=== PATIENT | female | born 1945 | race Caucasian/White ===

== ENCOUNTER 2016-11-15 14:46 | Inpatient (IN) | payer MEDICARE ==
[2017-01-18] MEDS ORDERED: TRAMADOL HCL 50 MG TABLET PO ONE (05:30)
[2017-01-18] MEDS ORDERED: OXYCODONE HCL 10 MG TAB.SR PO ONE ×2 (05:30→06:46)
[2017-01-18] MEDS ORDERED: GABAPENTIN 600 MG TABLET PO ONE (05:30)
[2017-01-18] MEDS ORDERED: FAMOTIDINE 20 MG TABLET PO ONE (05:30)
[2017-01-18] MEDS ORDERED: CELECOXIB 200 MG CAPSULE PO ONE (05:30)
[2017-01-18] MEDS ORDERED: ONDANSETRON 4 MG/2ML 2 ML VIAL IV ONE (05:30)
[2017-01-18] MEDS ORDERED: CLONIDINE HCL 0.1 MG/24 HR (7 DAY PATCH) TD SCH (05:30)
[2017-01-18] MEDS ORDERED: IV START KIT ONE ×2 (05:43→18:08)
[2017-01-18] MEDS ORDERED: LACTATED RINGERS 1,000 ML ONE (05:43)
[2017-01-18] MEDS ORDERED: BUPIVACAINE 0.75% SPINAL AMPUL 2 ML ONE (06:24)
[2017-01-18] MEDS ORDERED: ROPIVACAINE 0.5% 30 ML VIAL ONE (06:24)
[2017-01-18] MEDS ORDERED: SPINAL PROCEDURAL TRAY 1 EACH ONE (06:24)
[2017-01-18] MEDS ORDERED: NERVE BLOCK PROCEDURAL TRAY 1 EACH ONE (06:25)
[2017-01-18] MEDS ORDERED: MIDAZOLAM HCL 5 MG/5 ML VIAL ONE (06:26)
[2017-01-18] MEDS ORDERED: FENTANYL 100 MCG/2 ML VIAL ONE (06:26)
[2017-01-18] MEDS ORDERED: ROPIVACAINE 0.2% 20 ML VIAL ONE (06:42)
[2017-01-18] MEDS ORDERED: TRAMADOL HCL 50 MG TABLET ONE (06:46)
[2017-01-18] MEDS ORDERED: FAMOTIDINE 20 MG TABLET ONE (06:47)
[2017-01-18] MEDS ORDERED: CLONIDINE HCL 0.1 MG/24 HR (7 DAY PATCH) TD ONE (06:47)
[2017-01-18] MEDS ORDERED: GABAPENTIN 600 MG TABLET ONE (06:47)
[2017-01-18] MEDS ORDERED: ONDANSETRON 4 MG/2ML 2 ML VIAL ONE (06:47)
[2017-01-18] MEDS ORDERED: CELECOXIB 200 MG CAPSULE ONE (06:47)
[2017-01-18] MEDS ORDERED: CEFAZOLIN SODIUM 2 GRAM PREMIX 100 ML IV ONE (07:07)
[2017-01-18] MEDS ORDERED: BUPIVACAINE 0.25% (MDV) 24 ML, MORPHINE SULFATE 8 MG, EPINEPHRINE 0.3 MG in SODIUM CHLO... IF PRN (07:10)
[2017-01-18] MEDS ORDERED: POLYMYXIN B SULFATE 500,000 UNITS, BACITRACIN 25,000 UNITS in SODIUM CHLORIDE 3 L IRRIG... IR PRN (07:10)
[2017-01-18] MEDS ORDERED: TRANEXAMIC ACID 1,000 MG in SODIUM CHLORIDE 0.9% 100 ML IV PRN (07:10)
[2017-01-18] MEDS ORDERED: BUPIVACAINE 0.25% (MDV) 20 ML in SODIUM CHLORIDE 0.9% FLUSH 20 ML IF PRN (07:10)
[2017-01-18] MEDS ORDERED: PROPOFOL 40 ML IV ONE (08:07)
[2017-01-18] MEDS ORDERED: EPHEDRINE SULFATE UD SYR 25 MG 25 MG/5 ML SYRINGE IV ONE ×2 (08:07→09:26)
[2017-01-18] MEDS ORDERED: NALOXONE HCL 0.4 MG/ML VIAL IV PRN (08:44)
[2017-01-18] MEDS ORDERED: ATROPINE SULFATE 0.4 MG/1 ML VIAL IV PRN (08:44)
[2017-01-18] MEDS ORDERED: ON-Q PUMP/ROPIVACAINE 0.2% 450 ML in PREMIX BAG 1 EACH NB PRN (08:44)
[2017-01-18] MEDS ORDERED: FENTANYL 100 MCG/2 ML VIAL IV PRN (08:44)
[2017-01-18] MEDS ORDERED: LACTATED RINGERS 1,000 ML IV SCH (08:45)
--- NOTE | 2017-01-18 09:32 | HP ---
DATE OF CLINIC: 01/12/2017 YAJAIRA ERNST : 1945 PLANNED PROCEDURE: Right Knee Removal of Femoral Brayden and Nail and Total Knee Arthroplasty DATE OF PROCEDURE: January 18, 2017 SURGEON: Johnny Lackey M.D. PCP: Dr. Carlos Caldwell HISTORY OF PRESENT ILLNESS Yajaira Ernst is a 71 year old female. * Medication list reviewed with patient allergy list reviewed with patient. 71-year-old female well-known to me for degenerative disease of her right knee. She has most recently gone through a visco supplementation trial with Félix, finishing in January, but unfortunately did not result in much improvement. She struggles with global pain more medial than lateral, non-mechanical. She does have night pain and significant startup symptoms. Pain is non-radicular, no hip pain. She does have a history of a prior lumbar fusion. In addition, she also has rheumatoid arthritis being managed by Dr. Jayla Wood. She is on Remicade and Methotrexate. She is currently on a short course of oral Prednisone as well for a "flare". She has had a prior femoral fracture treated by Dr. Mcmanus in 2010 with a retrograde nail. She is interested in discussion of definitive treatment with respect to the knee. After discussion and review of treatment options, both operative and non-operative, she has elected to proceed with surgical intervention and presents today preoperatively. She has had no recent illnesses. CURRENT MEDICATION * Adult Aspirin EC Low Strength 81 MG Tablet Delayed Release 1 once a day 0 days, 0 refills * AmLODIPine Besylate 5 MG Tablet 1 once a day 0 days, 0 refills * Calcium + D3 600-200 MG-UNIT Tablet 1 once a day 0 days, 0 refills * Flonase Allergy Relief 50 MCG/ACT Suspension as directed 0 days, 0 refills * Folic Acid 1 MG Tablet three times a day 0 days, 0 refills * HydroCHLOROthiazide 25 MG Tablet 1 once a day 0 days, 0 refills * Methotrexate 2.5 MG Tablet as directed 6 tabs a week, 0 days, 0 refills * Metoprolol Tartrate 25 MG Tablet 2 once a day half a tab 2x a day, 0 days, 0 refills * Multi Vitamin Daily Tablet 1 once a day 0 days, 0 refills * Logsden 3 1200 MG Capsule 1 once a day 0 days, 0 refills * Potassium Chloride ER 10 MEQ Capsule Extended Release 1 once a day 0 days, 0 refills * Remicade 100 MG Solution Reconstituted as directed 0 days, 0 refills * Tolterodine Tartrate 1MG Tablet as directed 2mg 2 times a day, 0 days, 0 refills * Vitamin D3 2000 UNIT Capsule 1 once a day 0 days, 0 refills PAST MEDICAL/SURGICAL HISTORY Reported: Medical: A previous fracture femur 2010, Hypertension, Vertigo, and Rheumatoid Arthritis since 1987. Surgical / Procedural: Prior surgery fracture femur 12/2010 and Back Surgery fusion 10/2012. SOCIAL HISTORY Behavioral: Caffeine use and non-smoker quit smoking stopped in 2009 after smoking 1 pack a day for 40 years. Smoking status: Former smoker. Alcohol: Alcohol use a social drinker. Work: Occupation Retired. ALLERGIES * EDTA Reaction: Skin Rashes/Hives * Hayfever * Neosporin Reaction: Skin Rashes/Hives No reaction to anesthetics. REVIEW OF SYSTEMS Systemic: No fever and no recent weight change. Head: No head symptoms. Cardiovascular: No cardiovascular symptoms. Pulmonary: No pulmonary symptoms. Gastrointestinal: No gastrointestinal symptoms. Psychological: No psychological symptoms. Skin: No skin lesions and no rash. PHYSICAL FINDINGS * Vitals taken 01/12/2017 01:42 pm BP-Sitting R 136/76 mmHg 100 - 120/56 - 80 BP Cuff Size Regular Pulse Rate-Sitting 60 bpm 50 - 100 Temp-Oral 96.6 F 96 - 101 Height 62 in 59 - 68 Weight 135 lbs 95 - 175 Body Mass Index 24.7 kg/m2 Body Surface Area 1.62 m2 Pain Level 8 Ears, Nose, Throat: * ENT: normal. Lungs: * Clear to auscultation. Cardiovascular: Heart Rate and Rhythm: * Normal. Abdomen: * Normal. Neurological: Motor: * Dominant Hand = Right Hand. Patient is a well-developed, well-nourished female in no acute distress, normal-appearing mood and affect. She has a stiff-legged, antalgic gait, worse at startup favoring the right. She stands well centered over her pelvis with no pelvic obliquity. Evaluation of the right knee shows a well-healed anteromedial curving incision. Skin integrity is well-preserved, no wounds, rashes or lesions. Mild swelling, no gross effusion. Motion is 0-115 degrees with discomfort on forced flexion. She is tender medially, fairly diffuse, NT laterally, mild pain on patellar compression. Ligamentous exam is intact for cruciates and collaterals. NT over the anteromedial proximal tibia. Calf is soft and NT. Distal light touch sensation and motor function are intact and symmetric. Pulses are palpable. Gentle rotation of the hip is non-irritable. TESTS * Test: TYPE AND SCREEN Report Date: 01/18/2017 BLOOD TYPE A Pos Normal AB SCREEN NEGATIVE Normal * Test: CBC WITH DIFF Report Date: 01/12/2017 WBC 9.2 10*3/mL BASOPHIL 0.5 % RBC 4.28 10*6/uL NEUTROPHILS 50.2 % MCH 32.2 pg High MCHC 33.1 g/dL RDW 14.2 % MCV 97.4 fL PLATELET COUNT 217 10*3/mL IMM NEUT % 0.2 % IMM NEUT # 0.0 10*3/mL MONOCYTES 14.8 % High EOSINOPHIL 3.5 % High HCT 41.7 % HGB 13.8 g/L LYMPHOCYTE 30.8 % ANC 4.6 10*3/mL * Test: COMPREHENSIVE METABOLIC PANEL Report Date: 01/12/2017 ALT/SGPT 24 U/L ALBUMIN 4.1 g/dL ALB/GLOB RATIO 1.1 BUN 19 mg/dL BUN/CREAT RATIO 27 High CALCIUM 9.7 mg/dL GLUCOSE 98 mg/dL CREATININE 0.7 mg/dL SODIUM 137 meq/L POTASSIUM 3.8 meq/L CHLORIDE 99 meq/L CARBON DIOXIDE 30 meq/L ANION GAP 12 meq/L TOT PROTEIN 7.7 g/dL GLOBULIN 3.6 g/dL High BILI,TOTAL 0.4 mg/dL AST/SGOT 31 U/L ALK PHOSPHATASE 62 U/L GFR 82 High * Test: CULTURE, MRSA Report Date: 01/14/2017 CULTURE, MRSA See Report * Test: CULTURE, URINE Report Date: 01/13/2017 CULTURE, URINE See Report * Test: PARTIAL THROMBOPLASTIN TIME Report Date: 01/12/2017 APTT 22.7 s Low * Test: PROTHROMBIN TIME Report Date: 01/12/2017 PROTIME 10.1 s INR 0.96 * Test: URINALYSIS WITH MICROSCOPIC Report Date: 01/12/2017 EPITHELIAL CELL 0-2 WBC 5-10 GLUCOSE NEGATIVE BACTERIA RARE PH,URINE 6.5 SPEC. GRAVITY 1.020 KETONE NEGATIVE NITRITE NEGATIVE RBC 0-2 BLOOD TRACE BILIRUBIN NEGATIVE APPEARANCE CLEAR PROTEIN NEGATIVE COLOR YELLOW LEUK ESTERASE 1+ UROBILINOGEN NORMAL IMAGING: Prior radiographs from December are again reviewed with the patient showing significant medial compartment narrowing with periarticular sclerosis and mild patellar spurring. There is presence of an intramedullary brayden. Distal femur shows cortical hypertrophy. Proximal femur is non-visualized. ASSESSMENT DJD, right knee, with history of RA. Retained hardware, right femur from prior femur fracture treated elsewhere. THERAPY * Patient fall risk screen negative. * Patient eligible for fall risk assessment. * Patient received fall risk assessment. PLAN * Unilateral primary osteoarthritis, right knee Physical Therapy: *Other * OTHER OxyCONTIN 10 MG T12A, 1 po q 12 hours-TO BE USED FOR AFTER SURGERY, 10 days, 0 refills TraMADol HCl 50 MG TABS, 1 po q 6 hours prn pain-TO BE USED FOR AFTER SURGERY, 5 days, 0 refills OxyCODONE HCl 5 MG TABS, 1-2 po q 4 hours for break thru pain if needed-TO BE USED FOR AFTER SURGERY, 5 days, 0 refills CeleBREX 200 MG CAPS, 1 once a day-TO BE USED FOR AFTER SURGERY, 20 days, 0 refills Right removal of femoral brayden and nail and total knee arthroplasty. Discussed with patient in detail the limitations, expectations as well as risks and possible complications of surgery including, but not limited to wound problems or infection, neurovascular injury, continued knee pain or dysfunction, including the possibility of prosthetic wear or failure over time that may require additional operative or non-operative treatment. Patient also realizes the perioperative risks including risks associated with anesthesia and would like to proceed. A full PAR conference was held, questions and concerns addressed and informed consent was obtained. Patient will be sent from my office for completion of the preoperative workup. Patient will enteric coated aspirin postoperatively for DVT prophylaxis as per risk stratification protocol.use Patient would like to perform their postop PT at [facility] with total knee arthroplasty protocol. CARE TEAM Carlos Caldwell MD [facility] Robson Darnell MD Cardiovascular Disease CC: Dr. Jayla Wood ALYCIA/sg
[2017-01-18] MEDS ORDERED: ON-Q PUMP/ROPIVACAINE 0.2% 450 ML ONE (10:09)
--- NOTE | 2017-01-18 11:02 | RAD ---
HIP RIGHT 1 VIEW COMPARISON: Right femur 2 views, 08/04/2016 HISTORY: Right femoral prabhjot screw removal in preparation for removal of the femoral prabhjot prior to right total knee arthroplasty for painful osteoarthritis. FINDINGS: Views: 2 AP views of the proximal right femur. The fluoroscopy time 6.7 seconds Surgical hardware: Successful removal of the single screw from the proximal portion of the intramedullary prabhjot in the right femur. IMPRESSION: Successful removal of a single screw from the proximal portion of the intramedullary prabhjot in the right femur.
[2017-01-18] MEDS ORDERED: TEMAZEPAM 15 MG CAPSULE PO PRN (11:14)
[2017-01-18] MEDS ORDERED: KETOROLAC TROMETHAMINE 30 MG/ML 1 ML VIAL IV PRN (11:14)
[2017-01-18] MEDS ORDERED: ONDANSETRON 4 MG/2ML 2 ML VIAL IV PRN (11:14)
[2017-01-18] MEDS ORDERED: HYDROMORPHONE HCL 1 MG/ML SYRINGE IV PRN (11:14)
[2017-01-18] MEDS ORDERED: CALCIUM CARBONATE 500 MG TAB.CHEW PO PRN (11:14)
--- NOTE | 2017-01-18 11:14 | OP ---
MARC CORBIN [id number] : 1945 DATE OF SURGERY: January 18, 2017 PREOPERATIVE DIAGNOSIS: 1. Degenerative joint disease right knee 2. Retained hardware; IM locked right femoral prabhjot POSTOPERATIVE DIAGNOSIS: Same PROCEDURE: 1. Right Total Knee Arthroplasty 2. Removal of locked retrograde IM femoral nail COMPONENTS: Legion size 4 posterior stabilized Oxinium cemented femoral component, size 3 cemented tibial base plate, 9mm high flexion cross-linked polyethylene articular insert, 32mm resurfacing patella. SURGEON: Johnny Lackey M.D. BROADCAST TRANSMITTER OPERATOR: Gracy RENEE) ANESTHESIA: Spinal plus adductor nerve block per Woody ESTIMATED BLOOD LOSS: 100 cc IV FLUID REPLACEMENT: per anesthesia, 1 liter crystalloid DRAINS: None TOURNIQUET TIME: Approximately 50 minutes COMPLICATIONS: None HISTORY: Briefly, patient is a 71-year-old female with clinical and radiographic evidence of advanced degenerative disease of their right knee. She is also s/p a right femoral fracture from over 5 years ago treated with a retrograde nail. This is retained with a proximal interlock screw. She has failed traditional non-operative management and desire elective total knee arthroplasty. For additional details, please refer to the previously dictated Preoperative History and Physical Examination. A PAR conference was held, questions and concerns were addressed, and informed consent was obtained. FINDINGS: Locked IM prabhjot, significant periarticular osteopenia. Wear is primarily medial with proximal tibial and distal femoral wear. PROCEDURE: The patient was taken to the operating room after the placement of a spinal anesthetic and adductor nerve block. They were placed supine on the operating room table. Initially Biplanar fluoroscopic imaging was used and the area of the proximal thigh anteriorly was prepped and draped out with a field block. The right lower extremity was prepped and draped out in the usual sterile fashion. Preoperative IV antibiotics were given empirically. Intraoperative DVT prophylaxis consisted of contralateral foot pumps. We made a small anterior incision over the proximal thigh. This was approximately 1cm. I bluntly dissected down to bone. Using assistance from fluoroscopic imaging, I was able to isolate the anterior to posterior interlocking screw. This was removed without incident. We confirmed radiographically there were no other additional issues. We irrigated and closed with interrupted 3-0 Vicryl and Dermabond with steri-strips. The tourniquet was then applied to the proximal thigh and the lower extremity prepped and draped out in the usual sterile fashion. Personal filtration suits were used as was a closed room environment. The leg was then elevated and the tourniquet inflated after gravity exsanguination. This was dropped after exposure and not used again until cementation. Tranexamic acid was infiltrated over 10 minutes prior to incision, 1 gram dose per protocol. A similar 2nd dose was given at initiation of closure. With the knee flexed, we utilized our previous anteromedial scar and extended this proximally and distally 3 centimeters proximal to the superior pole of the patella just medial to the tibial tubercle. A medial arthrotomy was performed with a quadriceps splitting approach. A medial subperiosteal proximal tibial release was performed and a portion of the anterior fat pad was excised to improve visualization. The supra-patellar pouch was mildly synovitic. This was raised subperiosteally. The anterior and posterior cruciate ligaments were excised as were the remaining portions of the anterior horns of the medial and lateral menisci. Minimally invasive instrumentation and philosophy were used throughout the procedure in an attempt to decrease the extent of soft tissue disruption/damage. I used a small osteotome to uncover the distal aspect of the femoral nail. A small rongeur was utilized to help with this as well. Once the threads were exposed I used the [employer] universal extraction tool. This was threaded distally into the femoral nail and it was extracted without incident by disimpacting it. The intramedullary femoral drill was passed followed by the intramedullary alignment prabhjot with the 5 degree valgus bushing. We made our provisional anterior cut and then our distal femoral cut flush with the sulcus. We confirmed the size of the femur and placed the appropriate 4-in-1 cutting block making our anterior and posterior condylar cuts followed by the chamfer cuts. Residual marginal osteophytes were removed. Attention was then directed to the tibia which was retracted anteriorly. Remaining meniscal tissue was excised. The extramedullary tibial alignment jig was placed and the proximal tibial cut made as per our preoperative plan perpendicular to the long axis of the tibia. The tibia was sized and we passed the 11 mm. punch. We then balanced the flexion and extension gaps by performing a limited posterior capsular release. We established adequate hemostasis. We then completed the femoral preparation by reaming and chiseling the notch. Femoral and tibial trial components were placed. We were able to obtain full extension with nice roll back and good coronal plane alignment and stability. The patella tracked well and was prepared using the Toño patellar reaming system removing 9 mm. of bone. Osteophytes were removed prior to this with a rongeur and we performed a circumferential limited denervation using cautery. This was sized accordingly and punch holes were drilled. We marked our tibial rotation and removed the trial components after passing the cruciform tibial punch. The knee was then re-exsanguinated and the tourniquet inflated after establishing adequate hemostasis. Double antibiotic pulsatile lavage was used to irrigate the knee and clean the cancellous tuan interstices which were then carefully dried. The first periarticular injection was given, per protocol, in the posterior capsule, posteromedial knee and synovium. Two doses of high viscosity, antibiotic impregnated, polymethylmethacrylate were used to cement the femoral, tibial, and then patellar components. The knee was held in extension while the cement cured. All residual methacrylate was meticulously removed. Attention was then directed towards closure. We irrigated and the retinaculum was closed with a running #2 absorbable StratoFix suture. The 2nd periarticular injection was given, per protocol, anteromedially of the pes anserine, the extensor mechanism and IT band. The repair was checked in maximum flexion. We then lightly irrigated the subcutaneous tissue and closed with interrupted 2-0 and 3-0 Vicryl. The skin was then re-approximated with subcuticular 4-0 Monocryl and Dermabond Prineo. A sterile compression dressing was applied. The patient was then transferred to their hospital bed and sent to the post anesthesia recovery room in stable condition. They tolerated the procedure well. Sponge, instrument, and needle count were correct. CC: Carlos Caldwell MD [facility] Patrick Wood MD
[2017-01-18 11:38] VITALS: BMI 24.4
--- NOTE | 2017-01-18 12:02 | RAD ---
KNEE RIGHT 1 OR 2 VIEWS COMPARISON: Right knee 4 views, 12/09/2015 HISTORY: Right total knee arthroplasty today. VIEWS: Right knee AP and crosstable lateral FINDINGS: Bones: Complete removal of the intramedullary prabhjot from the femur. Healed femoral diaphyseal fracture. Joints: Satisfactory appearance of the right total knee arthroplasty. Soft tissue: Normal. IMPRESSION: Satisfactory appearance of the right total knee arthroplasty.
[2017-01-18] MEDS ORDERED: HYDROMORPHONE HCL 0.5 MG/0.5 ML SYRINGE IV PRN (12:13)
[2017-01-18] MEDS ORDERED: HYDROMORPHONE HCL 2 MG/ML SYRINGE IV PRN (12:16)
[2017-01-18] MEDS ORDERED: PUMP TUBING ONE (12:26)
[2017-01-18] MEDS: ACETAMINOPHEN 500 MG TABLET PO SCH ×3 (12:33→23:23)
[2017-01-18] MEDS: D5 1/2NS with 20 mEq KCL 1,000 ML IV SCH ×2 (12:33→21:29)
[2017-01-18] MEDS ORDERED: SODIUM CHLORIDE 0.9% 500 ML IV SCH (15:01)
[2017-01-18] MEDS: CEFAZOLIN SODIUM 1 GRAM PREMIX 1 G in Premix (D5W) 50 ml 1 EACH IV SCH ×2 (16:19→23:23)
[2017-01-18] MEDS ORDERED: TRAMADOL HCL 50 MG TABLET PO PRN (17:00)
[2017-01-18] MEDS ORDERED: SODIUM CHLORIDE 0.9% FLUSH 10 ML ONE (18:08)
--- NOTE | 2017-01-18 18:11 | CONS ---
MARC ERNST [id number] : 1945 DATE OF ADMISSION: January 18, 2017 DATE OF CONSULTATION: January 18, 2017 PRIMARY CARE PROVIDER: Carlos Caldwell M.D. CONSULTATION REQUESTED BY: Johnny Lackey M.D. REASON FOR CONSULTATION: Postoperative medical management. CHIEF COMPLAINT: Right knee pain. HISTORY ON ADMISSION: Ms. Ernst has a long history of degenerative joint disease as well as rheumatoid arthritis. She has a prior history of a right femur fracture at the knee managed with a retrograde prabhjot. She consulted with Dr. Lackey and presented today for planned right total knee arthroplasty with removal of the prior hardware. Surgery was done under spinal anesthesia with an adductor block. Estimated loss was 100 mL. No drains or complications were noted. Tourniquet time approximately 50 minutes. Patient is seen on the medical/surgical floor postoperatively at about 5:00 p.m. She is still rather somnolent from surgery and disjointed in her history. She reports mild pain and mild nausea. No dyspnea, pruritus, or other symptoms at this time. PREOPERATIVE REVIEW OF SYSTEMS: No recent upper or lower respiratory symptoms. No cardiac symptoms. No genitourinary symptoms. No gastrointestinal symptoms. PAST MEDICAL HISTORY: 1. Rheumatoid arthritis followed by Dr. Jayla Wood. 2. Benign essential hypertension on three different medications. PAST SURGICAL HISTORY: 1. Lumbar fusion. 2. Femoral fracture open reduction internal fixation in 2010 on the right side. 3. Right total knee arthroplasty with removal of hardware today. ALLERGIES: REPORTED TO: 1. EDTA. 2. NEOMYCIN. MEDICATIONS: At home: 1. Tolterodine 1 mg orally twice daily. 2. Potassium chloride 10 mEq orally daily. 3. Multivitamin one daily. 4. Metoprolol succinate 12.5 mg orally twice daily. 5. Methotrexate 15 mg orally weekly. 6. Remicade 200 mg IV every 30 days. 7. Hydrochlorothiazide 25 mg orally daily. 8. Folic acid 3 mg orally daily. 9. Fish oil 1200 mg orally daily. 10. Cyanocobalamine 500 mcg sublingual daily. 11. Cholecalciferol 2000 international units orally daily. 12. Calcium with vitamin D one daily. 13. Aspirin 81 mg daily. 14. Amlodipine 5 mg orally daily. HABITS: She is a former smoker with a 40 pack-year history. Quit seven years ago. She drinks alcohol socially, not every day. SOCIAL HISTORY: She is retired. 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 Lives with her and daughter in [place]. FAMILY HISTORY: None significant. PHYSICAL EXAMINATION: GENERAL: This is a somnolent but arousable 71-year-old. She does not appear in any acute distress. VITAL SIGNS: Temperature is 97.8 degrees Fahrenheit, pulse 64, blood pressure 102/48, respiratory rate 15, oxygen saturation 98% on 2 L of oxygen by nasal cannula. HEENT: Pupils equal, round and reactive. Extraocular muscles are intact. Oropharynx is moist. LUNGS: Clear to auscultation. HEART: Regular. No murmur appreciated. ABDOMEN: Soft, nontender, nondistended. Normal bowel tones, no organomegaly. EXTREMITIES: Femoral nerve catheter is in place in the right thigh. Right knee is dressed and in a cooling blanket. Ankles and feet are without edema. She has good posterior tibial pulses bilaterally. NEUROLOGIC: Somnolent from anesthesia but otherwise normal. PREOPERATIVE LABORATORY STUDIES: On January 12, 2017, CBC was normal. Prothrombin time and partial thromboplastin time were normal. Chemistry profile was normal. Urinalysis had trace hematuria. Culture just grew contaminants. Nasal swab MRSA screening was negative. ASSESSMENT: Ms. Ernst is 71-year-old status post right total knee arthroplasty. She has underlying rheumatoid arthritis and hypertension. RECOMMENDATIONS: 1. Postoperative care per orthopedics. 2. Agree with full strength aspirin for postoperative venous thromboembolism prophylaxis along with mechanical means. 3. Parameters for antihypertensives were written should she have postoperative hypotension. Thank you, Dr. Lackey, for this consultation. The hospitalist service will follow.
[2017-01-18] MEDS: DOCUSATE SODIUM 100 MG CAPSULE PO SCH (21:30)
[2017-01-18] MEDS: ASCORBIC ACID 500 MG TABLET PO SCH (21:30)
[2017-01-18] MEDS: METOPROLOL SUCCINATE 25 MG TAB.ER.24H PO SCH (21:31)
[2017-01-18] MEDS: TOLTERODINE TARTRATE 2 MG TABLET PO SCH (21:31)
[2017-01-18] MEDS: OXYCODONE HCL 5 MG TABLET PO PRN (21:35)
[2017-01-19] MEDS ORDERED: REMOVE PATCH 1 EACH UNIT TD SCH (05:30)
[2017-01-19] MEDS: D5 1/2NS with 20 mEq KCL 1,000 ML IV SCH ×2 (05:54→11:33)
[2017-01-19] MEDS: ACETAMINOPHEN 500 MG TABLET PO SCH ×3 (05:54→16:17)
[2017-01-19 07:16] LABS: HEMOGLOBIN 11.1 gm/l (12.0-16.0); MEAN CORPUSCULAR HGB CONC 32.6 g/dl (33.0-37.0); RED CELL DISTRIBUTION WIDTH 14.4 % (11.5-14.5)
[2017-01-19] MEDS: AMLODIPINE BESYLATE 5 MG TABLET PO SCH (09:06)
[2017-01-19] MEDS: METOPROLOL SUCCINATE 25 MG TAB.ER.24H PO SCH ×2 (09:06→20:22)
[2017-01-19] MEDS: HYDROCHLOROTHIAZIDE 25 MG TABLET PO SCH (09:06)
[2017-01-19] MEDS: ASCORBIC ACID 500 MG TABLET PO SCH ×2 (09:15→20:23)
[2017-01-19] MEDS: POTASSIUM CHLORIDE 10 MEQ TAB.SR PO SCH (09:15)
[2017-01-19] MEDS: MULTIVITAMINS 1 TAB TABLET PO SCH (09:15)
[2017-01-19] MEDS: ASPIRIN (ENTERIC COATED) 325 MG TABLET.EC PO SCH (09:15)
[2017-01-19] MEDS: CELECOXIB 200 MG CAPSULE PO SCH (09:15)
[2017-01-19] MEDS: DOCUSATE SODIUM 100 MG CAPSULE PO SCH ×2 (09:15→20:24)
[2017-01-19] MEDS: TOLTERODINE TARTRATE 2 MG TABLET PO SCH ×2 (09:15→20:23)
[2017-01-19] MEDS: FOLIC ACID 1 MG TABLET PO SCH (09:19)
[2017-01-19 09:20] LABS: I-STAT CREATININE 0.6 mg/dL (0.6-1.3)
--- NOTE | 2017-01-19 09:23 | PDOC43 ---
- Subjective Findings: Ortho POD 1 Right femoral prabhjot extraction and R TKA Patient awake, A and O times 4 this am and in good spirits. No present c/o. Knee pain is well controlled. Denies CP/SOB/NV. Taking a regular diet and positive flatus. No ambulatory PT yet but performing bed exercises without complications. Subjective: Denies Chest Pain, Denies Shortness of Breath, Denies Nausea, Denies Vomiting, Denies Fever - Objective Vital Signs Temperature 97.6 F 01/19/17 07:32 Pulse Rate 59 01/19/17 07:32 Respiratory Rate 15 01/19/17 08:00 Blood Pressure 93/48 01/19/17 07:32 O2 Saturation by Pulse Oximetry 90 01/19/17 07:32 Oxygen Delivery Method Room Air Oxygen Flow Rate 0 Laboratory 01/19/17 06:15 01/19/17 06:15 RBC 3.47 L MCH 32.0 H MCHC 32.6 L Active Medication Orders Category Date Time Status Acetaminophen [Tylenol] Med 01/18/17 11:14 Active 1,000 mg PO Q6H Amlodipine Besylate [Norvasc] Med 01/19/17 09:00 Active 5 mg PO DAILY Ascorbic Acid [Vitamin C] Med 01/18/17 21:00 Active 500 mg PO BID Aspirin (Enteric Coated) [Ecotrin] Med 01/19/17 09:00 Active 325 mg PO DAILY Bisacodyl [Dulcolax] Med 01/21/17 10:44 Active 10 mg [place] DAILY PRN Calcium Carbonate [Tums] Med 01/18/17 11:14 Active 1,000 - 2,000 mg PO Q2H PRN Celecoxib [Celebrex] Med 01/19/17 09:00 Active 200 mg PO DAILY D5 1/2NS with 20 mEq KCL [D51/2NS with 20 mEq KCL] 1, Med 01/18/17 11:14 Active 000 ml IV 125 mls/hr Docusate Sodium [Colace] Med 01/18/17 21:00 Active 100 mg PO BID Folic Acid Med 01/19/17 09:00 Active 3 mg PO DAILY Hydrochlorothiazide Med 01/19/17 09:00 Active 25 mg PO DAILY Hydromorphone HCl [Dilaudid] Med 01/18/17 11:14 Active 0.5 - 2 mg IV Q2H PRN Hydromorphone HCl [Dilaudid] Med 01/18/17 12:13 Active 0.5 - 2 mg IV Q2H PRN Hydromorphone HCl [Dilaudid] Med 01/18/17 12:16 Active 0.5 - 2 mg IV Q2H PRN Ketorolac Tromethamine [Toradol] Med 01/18/17 11:14 Active 30 mg IV Q6H PRN Magnesium Hydroxide [Milk of Magnesia] Med 01/19/17 10:44 Active 30 ml PO DAILY PRN Metoprolol Succinate [Toprol Xl] Med 01/18/17 21:00 Active 12.5 mg PO BID Multivitamins [One-A-Day] Med 01/19/17 09:00 Active 1 tab PO DAILY On-Q Pump/Ropivacaine 0.2% 450 ml Med 01/18/17 11:14 Active Premix Bag [Premix Fluid] 1 each NB Q50H Ondansetron 4 mg/2ml Vial [Zofran] Med 01/18/17 11:14 Active 4 - 6 mg IV Q6H PRN Oxycodone HCl [Roxicodone] Med 01/18/17 11:14 Active 5 - 10 mg PO Q4H PRN Potassium Chloride [K-Dur] Med 01/19/17 09:00 Active 10 meq PO DAILY Sodium Chloride 0.9% Flush [Normal Saline 10ml Flush] Med 01/18/17 11:14 Active 10 - 50 ml IV PRN PRN Sodium Chloride 0.9% Flush [Normal Saline 10ml Flush] Med 01/18/17 17:00 Active 10 ml IV Q8HR Temazepam [Restoril] Med 01/18/17 11:14 Active 15 mg PO BEDTIME PRN Tolterodine [Detrol] Med 01/18/17 21:00 Active 1 mg PO BID Tramadol HCl [Ultram] Med 01/18/17 17:00 Active 50 mg PO Q6H PRN Intake and Output 01/17/17 01/18/17 01/19/17 23:59 23:59 23:59 Intake Total 1075 2846 Output Total 1050 1300 Balance 25 1546 Neurological: No Normal Gait (ambulating with a walker post R TKA) Peripheral Pulses: Right Posterior Tibialis: 1+, Right Dorsalis Pedis: 1+ - Right Lower Extremity Incision: Well Approximated (with a sub Q closure, skin glue and mesh. moderate knee edema. thigh and calf are SNT.), No Dressing Saturated, No Shadow Drainage , No Drainage, No Erythema, No Rash Motor: Extensor Hallucis Longus: 5/5, Tibialis Anterior: 5/5, Gastrocnemius: 4/5 , Peroneals: 5/5, Quadriceps: 4/5 Gross Sensation to Light Touch: Present: Deep Peroneal Nerve, Superficial Peroneal Nerve, Medial Plantar Nerve, Lateral Plantar Nerve, Sural Nerve, Saphenous Nerve Motion: Supine AROM: knee flexion to 50 with passive improvement. Full extension with SLR without assist. Ankle full AROM. - Problems (1) Status post total right knee replacement Status: AcuteAssessment/Plan: Ortho POD 1 R TKA, doing well 1. Anticoagulation: Aspirin 325mg daily for 6 weeks, pneumatic compression, TEDS , and mobility. 2. Pain management per protocol as written. Call for modifications. 3. PT/OT BID R TKA protocol WBAT. 4. Encourage spirometry, bed exercises q hours when awake. 5. MARIO mishra after am PT. 6. Appreciate Hospitalist care for perioperative medical management.
[2017-01-19] MEDS: ON-Q PUMP/ROPIVACAINE 0.2% 450 ML in PREMIX BAG 1 EACH NB PRN (09:24)
[2017-01-19] MEDS ORDERED: REMOVE PATCH 1 EACH UNIT TD ONE (10:44)
[2017-01-19] MEDS ORDERED: MAGNESIUM HYDROXIDE 30 ML UDCUP PO PRN (10:44)
[2017-01-19] MEDS: OXYCODONE HCL 5 MG TABLET PO PRN ×3 (11:03→20:23)
--- NOTE | 2017-01-19 13:11 | PDOC43 ---
- Subjective Chief Complaint: R TKA 01/18 Patient reports feeling a little sleepy after having pain med. Was kind of sore after walking, but hadn't received pain med before activity. Breathing ok, no lightheadedness, No GI c/o, no other c/o. - Objective Vital Signs Temperature 97.5 F 01/19/17 12:23 Pulse Rate 84 01/19/17 12:23 Respiratory Rate 15 01/19/17 12:23 Blood Pressure 116/53 01/19/17 12:23 O2 Saturation by Pulse Oximetry 92 01/19/17 12:23 Oxygen Delivery Method Room Air Oxygen Flow Rate 0 Vital Signs Last 12 Hours Temp Pulse Resp BP Pulse Ox 01/19/17 12:23 97.5 F 84 15 116/53 92 01/19/17 08:00 15 01/19/17 07:32 97.6 F 59 15 93/48 90 01/19/17 03:30 97.9 F 54 18 95/60 98 01/19/17 02:00 18 Intake and Output 01/17/17 01/18/17 01/19/17 23:59 23:59 23:59 Intake Total 1075 2846 Output Total 1050 2250 Balance 25 596 General: Alert, Cooperative, No Acute Distress Lungs: Clear to Auscultation Bilaterally, Normal Air Movement Cardiovascular: Regular Rate and Rhythm Abdomen: Soft, Normal Bowel Sounds, Non-Distended Extremities: Other (R knee dressed, CDI. Ankles unrem. Hands with RA/OA changes. ) Skin: Normal Color Neurological: Normal Speech Psych/Mental Status: Normal Affect, Normal Mood Laboratory 01/19/17 06:15 01/19/17 06:15 01/19/17 06:15 RBC 3.47 L MCH 32.0 H MCHC 32.6 L Current Medications: Current meds reviewed in EMR. Active Medications Acetaminophen (Tylenol) 1,000 mg PO Q6H [facility] Last Admin: 01/19/17 11:03 Dose: 1,000 mg Amlodipine Besylate (Norvasc) 5 mg PO DAILY [facility] Last Admin: 01/19/17 09:06 Dose: Not Given Ascorbic Acid (Vitamin C) 500 mg PO BID [facility] Last Admin: 01/19/17 09:15 Dose: 500 mg Aspirin (Ecotrin) 325 mg PO DAILY [facility] Last Admin: 01/19/17 09:15 Dose: 325 mg Bisacodyl (Dulcolax) 10 mg [place] DAILY PRN PRN Reason: If no BM by POD#3 Calcium Carbonate/Glycine (Tums) 1,000 - 2,000 mg PO Q2H PRN PRN Reason: Heartburn/Indigestion Celecoxib (Celebrex) 200 mg PO DAILY [facility] Last Admin: 01/19/17 09:15 Dose: 200 mg Docusate Sodium (Colace) 100 mg PO BID [facility] Last Admin: 01/19/17 09:15 Dose: 100 mg Folic Acid (Folic Acid) 3 mg PO DAILY [facility] Last Admin: 01/19/17 09:19 Dose: 3 mg Hydrochlorothiazide (Hydrochlorothiazide) 25 mg PO DAILY [facility] Last Admin: 01/19/17 09:06 Dose: Not Given Hydromorphone HCl (Dilaudid) 0.5 - 2 mg IV Q2H PRN PRN Reason: Pain (Severe/Breakthrough) Hydromorphone HCl (Dilaudid) 0.5 - 2 mg IV Q2H PRN PRN Reason: Pain (Severe/Breakthrough) Potassium Chloride/Dextrose/Sod Cl (D51/2ns With 20 Meq Kcl) 1,000 mls @ 125 mls/hr IV .Q8H [facility] Last Admin: 01/19/17 11:33 Dose: Not Given Ropivacaine 450 ml/ Sterile (Water) 450 mls @ 0 mls/hr NB Q50H PRN; Protocol PRN Reason: Pain Last Admin: 01/19/17 09:24 Dose: 6 mls/hr Magnesium Hydroxide (Milk Of Magnesia) 30 ml PO DAILY PRN PRN Reason: If no BM by evening of POD#1 Metoprolol Succinate (Toprol Xl) 12.5 mg PO BID [facility] Last Admin: 01/19/17 09:06 Dose: Not Given Multivitamins (One-A-Day) 1 tab PO DAILY [facility] Last Admin: 01/19/17 09:15 Dose: 1 tab Ondansetron HCl (Zofran) 4 - 6 mg IV Q6H PRN PRN Reason: Nausea/Vomiting Oxycodone HCl (Roxicodone) 5 - 10 mg PO Q4H PRN PRN Reason: Pain (Moderate) Last Admin: 01/19/17 11:03 Dose: 5 mg Potassium Chloride (K-Dur) 10 meq PO DAILY [facility] Last Admin: 01/19/17 09:15 Dose: 10 meq Sodium Chloride (Normal Saline 10ml Flush) 10 - 50 ml IV PRN PRN PRN Reason: IV Flush Sodium Chloride (Normal Saline 10ml Flush) 10 ml IV Q8HR [facility] Last Admin: 01/19/17 09:15 Dose: 10 ml Temazepam (Restoril) 15 mg PO BEDTIME PRN PRN Reason: Insomnia Tolterodine Tartrate (Detrol) 1 mg PO BID [facility] Last Admin: 01/19/17 09:15 Dose: 1 mg Tramadol HCl (Ultram) 50 mg PO Q6H PRN PRN Reason: Pain (Mild) - Problems: Assessment/Plan (1) Status post total right knee replacement Status: AcuteAssessment/Plan: Appreciate ortho care. (2) HTN (hypertension), benign Status: ChronicAssessment/Plan: Parameters for meds. (3) Rheumatoid arthritis Qualifiers: Rheumatoid arthritis location: unspecified site Rheumatoid factor presence: unspecified presence Qualifier Code: (M06.9) Rheumatoid arthritis , unspecified Status: ChronicAssessment/Plan: Stable. VTE Prophylaxis: on aspirin per ortho
[2017-01-19 14:18] LABS: CALCIUM 8.1 mg/dL (8.6-10.3)
[2017-01-20] MEDS: ACETAMINOPHEN 500 MG TABLET PO SCH ×3 (01:05→11:15)
[2017-01-20] MEDS: OXYCODONE HCL 5 MG TABLET PO PRN ×3 (01:05→08:54)
[2017-01-20 07:13] LABS: HEMATOCRIT 32.5 % (37.0-47.0); HEMOGLOBIN 10.7 gm/l (12.0-16.0)
[2017-01-20] MEDS: AMLODIPINE BESYLATE 5 MG TABLET PO SCH (08:28)
[2017-01-20] MEDS: METOPROLOL SUCCINATE 25 MG TAB.ER.24H PO SCH (08:28)
[2017-01-20] MEDS: HYDROCHLOROTHIAZIDE 25 MG TABLET PO SCH (08:28)
[2017-01-20] MEDS: DOCUSATE SODIUM 100 MG CAPSULE PO SCH (08:47)
[2017-01-20] MEDS: POTASSIUM CHLORIDE 10 MEQ TAB.SR PO SCH (08:47)
[2017-01-20] MEDS: MULTIVITAMINS 1 TAB TABLET PO SCH (08:47)
[2017-01-20] MEDS: ASCORBIC ACID 500 MG TABLET PO SCH (08:47)
[2017-01-20] MEDS: FOLIC ACID 1 MG TABLET PO SCH (08:48)
[2017-01-20] MEDS: ASPIRIN (ENTERIC COATED) 325 MG TABLET.EC PO SCH (08:48)
[2017-01-20] MEDS: CELECOXIB 200 MG CAPSULE PO SCH (08:48)
[2017-01-20] MEDS: ON-Q PUMP/ROPIVACAINE 0.2% 450 ML in PREMIX BAG 1 EACH NB PRN (08:54)
[2017-01-20] MEDS ORDERED: TOLTERODINE TARTRATE 2 MG TABLET PO SCH (09:00)
--- NOTE | 2017-01-20 09:13 | PDOC43 ---
- Subjective Findings: Ortho POD 2 R TKA Patient awake, A and O times 4 this and in good spirits. Poor sleep last night, otherwise no c/o. Pain is more notable today but well controlled. Denies CP/SOB/ NV. Taking a regular diet and positive flatus. Good progress with day 1 ambulatory PT. Subjective: Denies Chest Pain, Denies Shortness of Breath, Denies Nausea, Denies Vomiting, Denies Fever - Objective Vital Signs Temperature 97.8 F 01/20/17 07:09 Pulse Rate 76 01/20/17 07:09 Respiratory Rate 16 01/20/17 07:43 Blood Pressure 93/47 01/20/17 07:09 O2 Saturation by Pulse Oximetry 96 01/20/17 09:00 Oxygen Delivery Method Room Air Oxygen Flow Rate 0 Laboratory 01/20/17 06:10 01/19/17 06:15 01/19/17 06:15 Estimated GFR 98 H Calcium 8.1 L Active Medication Orders Category Date Time Status Acetaminophen [Tylenol] Med 01/18/17 11:14 Active 1,000 mg PO Q6H Amlodipine Besylate [Norvasc] Med 01/19/17 09:00 Active 5 mg PO DAILY Ascorbic Acid [Vitamin C] Med 01/18/17 21:00 Active 500 mg PO BID Aspirin (Enteric Coated) [Ecotrin] Med 01/19/17 09:00 Active 325 mg PO DAILY Bisacodyl [Dulcolax] Med 01/21/17 10:44 Active 10 mg [place] DAILY PRN Calcium Carbonate [Tums] Med 01/18/17 11:14 Active 1,000 - 2,000 mg PO Q2H PRN Celecoxib [Celebrex] Med 01/19/17 09:00 Active 200 mg PO DAILY Docusate Sodium [Colace] Med 01/18/17 21:00 Active 100 mg PO BID Folic Acid Med 01/19/17 09:00 Active 3 mg PO DAILY Hydrochlorothiazide Med 01/19/17 09:00 Active 25 mg PO DAILY Hydromorphone HCl [Dilaudid] Med 01/18/17 12:13 Active 0.5 - 2 mg IV Q2H PRN Hydromorphone HCl [Dilaudid] Med 01/18/17 12:16 Active 0.5 - 2 mg IV Q2H PRN Magnesium Hydroxide [Milk of Magnesia] Med 01/19/17 10:44 Active 30 ml PO DAILY PRN Metoprolol Succinate [Toprol Xl] Med 01/18/17 21:00 Active 12.5 mg PO BID Multivitamins [One-A-Day] Med 01/19/17 09:00 Active 1 tab PO DAILY On-Q Pump/Ropivacaine 0.2% 450 ml Med 01/18/17 11:14 Active Premix Bag [Premix Fluid] 1 each NB Q50H Ondansetron 4 mg/2ml Vial [Zofran] Med 01/18/17 11:14 Active 4 - 6 mg IV Q6H PRN Oxycodone HCl [Roxicodone] Med 01/18/17 11:14 Active 5 - 10 mg PO Q4H PRN Potassium Chloride [K-Dur] Med 01/19/17 09:00 Active 10 meq PO DAILY Sodium Chloride 0.9% Flush [Normal Saline 10ml Flush] Med 01/18/17 11:14 Active 10 - 50 ml IV PRN PRN Sodium Chloride 0.9% Flush [Normal Saline 10ml Flush] Med 01/18/17 17:00 Active 10 ml IV Q8HR Temazepam [Restoril] Med 01/18/17 11:14 Active 15 mg PO BEDTIME PRN Tolterodine [Detrol] Med 01/20/17 09:00 Active 2 mg PO BID Tramadol HCl [Ultram] Med 01/18/17 17:00 Active 50 mg PO Q6H PRN Intake and Output 01/18/17 01/19/17 01/20/17 23:59 23:59 23:59 Intake Total 1075 5290 890 Output Total 1050 2850 2700 Balance 25 2440 -1810 Neurological: No Normal Gait (ambulating with a walker post R TKA) Peripheral Pulses: Right Posterior Tibialis: 1+, Right Dorsalis Pedis: 1+ - Right Lower Extremity Incision: Well Approximated (with a sub Q closure, skin glue and mesh. Moderate knee edema. Thigh and calf are SNT.), No Dressing Saturated, No Shadow Drainage , No Drainage, No Erythema, No Rash Motor: Extensor Hallucis Longus: 5/5, Tibialis Anterior: 5/5, Gastrocnemius: 4/5 , Peroneals: 5/5, Quadriceps: 4/5 Gross Sensation to Light Touch: Present: Deep Peroneal Nerve, Superficial Peroneal Nerve, Medial Plantar Nerve, Lateral Plantar Nerve, Sural Nerve, Saphenous Nerve Motion: Supine AROM 5-60 with passive improvement. SLR without assist. Full AROM of the ankle. - Problems (1) Status post total right knee replacement Status: AcuteAssessment/Plan: Ortho POD 2 R TKA, doing well 1. Continue: Anticoagulation: Aspirin 325mg daily for 6 weeks, pneumatic compression, TEDS, and mobility. 2. Continue: Pain management per protocol as written. Call for modifications. 3. Continue: PT/OT BID R TKA protocol WBAT. 4. Continue: Encourage spirometry, bed exercises q hours when awake. 5. Disposition: Doing well and may discharge home today after PT if meets criteria. 6. Appreciate Hospitalist care for perioperative medical management.
[2017-01-20 11:40] VITALS: BP 109/51
--- NOTE | 2017-01-21 08:21 | DS ---
Yajaira CORBIN [id number] : 1945 DATE OF ADMISSION: January 18, 2017 DATE OF DISCHARGE: January 20, 2017 DISCHARGE DIAGNOSES: Right knee degenerative joint disease. HOSPITAL PROCEDURES: Right femoral prabhjot extraction followed by right total knee arthroplasty. SURGEON: Johnny Lackey M.D. BRIEF HISTORY: Patient is a 71-year-old female with both clinical and radiographic evidence of posttraumatic degenerative change of their right knee following a remote right femur fracture. For the full history please see the chart note. BRIEF HOSPITAL COURSE: Patient was admitted on January 18, 2017. Dr. Johnny Lackey performed a right femoral prabhjot extraction and right total knee arthroplasty. They were moved to the recovery room in stable condition. They were given 4 doses of antibiotic for empiric coverage. DVT prophylaxis consisted of aspirin 325 mg, pneumatic compression devices, GUMARO hose and mobility. PT was instituted postop day 1 with right total knee arthroplasty protocol, weightbearing as tolerated. Their incision site remained benign, their vital signs remained stable and they remained neurally and vascularly intact through the duration of the stay. They were discharged home on postop day, 2 to continue their outpatient PT at [facility] with right total knee arthroplasty protocol, weightbearing as tolerated. Dr. Shamir Bellamy retail client solutions consultant to manage perioperative medical comorbidities. For his consultation see the chart note. DISCHARGE INSTRUCTIONS: 1. Keep the wound site clean. May shower with Aquacel dressing intact. Call office with any questions or concerns and f/u for your dressing change as scheduled 1 week postop. 2. Continue the use of GUMARO hose bilaterally. 3. Cooling unit 3-4 times daily for 30 minutes duration. 4. Outpatient PT at [facility] with right total knee arthroplasty protocol, weightbearing as tolerated. MEDICATIONS: 1. Patient is to resume normal preop medications. 2. Anti-coagulation will be with aspirin, 325 mg daily for six weeks. 3. Pain management will be with OxyContin, 10mg every 12 hours x 10 days, Oxycodone, 5mg 1-2 every 4 hours prn for breakthrough pain, and Tramadol, 50mg every 6 hours prn pain and Celebrex 200 mg daily. 4. Patient was also advised on utilization of a multi-vitamin with mineral daily as well as Vitamin C, 500mg daily for 1 month. 5. Patient encouraged to take an iron supplement in the form of ferrous sulfate, 325mg daily for 4 weeks. 6. Colace, 100mg, b.i.d. until regular bowel movement. FOLLOW-UP: Please return to the clinic as scheduled for your first scheduled postop check. Prior to that point in time please call with any questions or concerns. Job [id number] CC: Kadie Caldwell M.D. [facility] [place] [facility]
[2017-01-21] MEDS ORDERED: BISACODYL 10 MG SUP PR PRN (10:44)
== END 2017-01-20 12:46 | disposition home or self-care (01) | DRG 470 ==
LOC: OR 01-18 05:37 → MS 01-18 11:26
PROVIDERS: ADMIT Orthopaedic Surgery; ATTEND Orthopaedic Surgery
PROC: 0SRC0J9 Replacement of Right Knee Joint with Synthetic Substitute, Cemented, Open Approach (ICD-10-PCS; principal; 2017-01-18)
DX: M17.11 Unilateral primary osteoarthritis, right knee (principal); M06.9 Rheumatoid arthritis, unspecified; I10 Essential (primary) hypertension; Z87.891 Personal history of nicotine dependence